=== PATIENT | male | born 1975 | race Two or more races ===

== ENCOUNTER 2022-11-25 12:15 | Inpatient (IN) | payer OTHER ==
[~2022-11-25] VITALS: Ht 165.1 cm; Wt 68.0 kg
[2022-12-05] MEDS ORDERED: PERCOCET 5-3251 EACH PO (15:13)
== END 2022-12-05 17:02 | disposition home or self-care (01) | DRG 331 ==
LOC: SURH 12-03 09:39 → O/R 12-03 09:39 → EDSEX 12-03 09:39 → SURH 12-03 12:15 → SURG 12-03 13:23 → SURH 12-03 13:28
PROVIDERS: ADMIT Surgery; ATTEND Surgery
PROC: 0DTF4ZZ Resection of Right Large Intestine, Percutaneous Endoscopic Approach (ICD-10-PCS; principal; 2022-12-03 19:45)
DX: D12.2 Benign neoplasm of ascending colon (principal); D12.0 Benign neoplasm of cecum; R59.0 Localized enlarged lymph nodes